=== PATIENT | female | born 1980 | race Caucasian/White ===

== ENCOUNTER 2020-08-02 07:28 | Outpatient (CLI) | payer OTHER, SELFPAY ==
--- NOTE | ~2020-08-02 | US_ITS ---
US right upper quadrant INDICATION: Elevated liver enzymes PROCEDURE: Realtime right upper abdominal ultrasound. COMPARISON: No prior studies for comparison. FINDINGS: The pancreas is normal without focal mass or pancreatic ductal dilation. Liver echotexture is increased without evidence for focal mass. There is normal directional flow in the portal vein. The gallbladder is normal without stones, gallbladder wall thickening or pericholecystic fluid. Comm on bile duct measures 3 mm. No sonographic Avalos's sign. IMPRESSION: 1: Increased liver echotexture, consistent with fatty infiltration. Reviewed, dictated and finalized at location A. CH MANAGER
== END 2020-08-02 07:29 | disposition home or self-care (01) ==
PROVIDERS: PCP Internal Medicine; Visit Provider Clinical Nurse Specialist
DX: R74.8 Abnormal levels of other serum enzymes (principal)
CPT/HCPCS: 76705

== ENCOUNTER 2020-11-03 08:32 | Outpatient (CLI) | payer OTHER, SELFPAY | END 2020-11-03 08:33 | disposition home or self-care (01) | LOC: ANHCOVIDVC 08:32 | PROVIDERS: PCP Internal Medicine | DX: Z23 Encounter for immunization (principal) | CPT/HCPCS: 0001A; 91300 ==

== ENCOUNTER 2020-11-24 08:32 | Outpatient (CLI) | payer OTHER, SELFPAY | END 2020-11-24 08:33 | disposition home or self-care (01) | LOC: ANHCOVIDVC 08:32 | PROVIDERS: PCP Internal Medicine | DX: Z23 Encounter for immunization (principal) | CPT/HCPCS: 0002A; 91300 ==

== ENCOUNTER → 2022-03-06 15:47 | Outpatient (CLI) | payer OTHER, SELFPAY ==
--- NOTE | ~2022-03-06 | MM_ITS ---
EXAMINATION: MM screening trace BI w nickie HISTORY: Screening TECHNIQUE: Craniocaudal and mediolateral oblique 3-D tomosynthesis images were obtained and synthetic 2-D images were generated. CAD analysis was submitted and interpreted. COMPARISON: No prior mammogram is available for comparison at this institution. BREAST PARENCHYMAL COMPOSITION: There are scattered areas of fibroglandular density. FINDINGS: There is a small mass in the medial aspect of the right breast on CC view, not well visuali zed on MLO view. There is no mammographic evidence for malignancy in the left breast. IMPRESSION: 1. Small right breast mass medially on CC view. 2. Additional mammographic views and possible breast ultrasound are recommended. BI-RADS Category 0: Incomplete: Needs additional imaging evaluation. Reviewed, dictated and finalized at location A. IMPRESSION: 1. Small right breast mass medially on CC view. 2. Additional mammographic views and possible breast ultrasound are recommended . BI-RADS Category 0: Incomplete: Needs additional imaging evaluation.
== END ==
PROVIDERS: PCP Internal Medicine; Visit Provider Nurse Practitioner
DX: Z12.31 Encounter for screening mammogram for malignant neoplasm of breast (principal); R92.8 Other abnormal and inconclusive findings on diagnostic imaging of breast
CPT/HCPCS: 77063; 77067

== ENCOUNTER 2022-03-24 07:57 | Outpatient (CLI) | payer OTHER, SELFPAY ==
--- NOTE | ~2022-03-24 | MMUS_ITS ---
EXAMINATION: MM diagnostic trace RT w nickie, US breast RT limited HISTORY: Follow-up right breast mass TECHNIQUE: Additional 3-D tomosynthesis images of the right breast were performed and synthetic 2-D i mages were generated. CAD analysis was submitted and interpreted. High resolution right breast ultras ound was performed. COMPARISON: 03/06/2022 BREAST PARENCHYMAL COMPOSITION: Breast composed of scattered areas of fibroglandular density FINDINGS: MAMMOGRAPHIC FINDINGS: The mass located medially in the left breast on prior screening CC view is not apparent on the additi onal spot compression or mediolateral views. No suspicious calcifications or architectural distortion . ULTRASOUND: Limited right breast ultrasound: At 2:00, 5 cm from the nipple, there is an intramammary lymph node m easuring 9 x 6 x 3 mm, likely corresponding to the mammographic abnormality. No sonographic evidence for malignancy. IMPRESSION: 1. No evidence for malignancy in the right breast. 2. Routine yearly screening mammogram and regular clinical breast examination are recommended. BI-RADS Category 2: Benign finding(s). Reviewed, dictated and finalized at location A. IMPRESSION: 1. No evidence for malignancy in the right breast. 2. Routine yearly screening mammogram and regular clinical breast examination a re recommended. BI-RADS Category 2: Benign finding(s).
== END 2022-03-24 07:58 ==
PROVIDERS: PCP Internal Medicine; Visit Provider Obstetrics & Gynecology Gynecology
DX: R92.8 Other abnormal and inconclusive findings on diagnostic imaging of breast (principal)
CPT/HCPCS: 76642; 77061; 77065; G0279

== ENCOUNTER 2022-07-17 11:22 | Outpatient (CLI) | payer OTHER, SELFPAY ==
[2022-07-17 11:44] LABS: Hematocrit 31.2 % (37.0-47.0); Hemoglobin 8.5 g/dL (12.0-15.0); Immature Granulocyte Absolute 0.01 K/mm3 (0.00-0.031); Immature Granulocyte Percent A 0.2 % (0-0.5); Lymphocytes Absolute Auto 1.69 K/mm3 (0.9-3.2); Lymphocytes Percent Auto 37.5 % (18.3-44.2); Mean Corpuscular HGB Conc 27.2 g/dl (32-36); Mean Corpuscular Hemoglobin 18.4 pg (26-34); Mean Corpuscular Volume 67.7 fl (80-100); Mean Platelet Volume 9.2 fl (7.4-10.4); Monocytes Absolute Auto 0.4 K/mm3 (0.1-0.6); Monocytes Percent Auto 9.3 % (2.6-8.5); Neutrophils Absolute Auto 2.4 K/mm3 (1.3-6.7); Platelet Count Result 242 k/mm3 (150-375); Red Blood Count 4.61 M/mm3 (4.2-5.4); Red Cell Distribution Width 17.2 % (11.5-14.5); White Blood Count 4.5 K/mm3 (4.5-10.0)
[2022-07-17 11:53] LABS: Hypochromasia 1+ (NORMAL); Ovalocytes 1+ (NORMAL); Platelet Estimate Adequate (Adequate); Poikilocytosis 1+ (NORMAL); Schistocytes None Seen (NORMAL)
[2022-07-17 18:04] LABS: Iron 25 ug/dL (37-170)
[2022-07-17 18:14] LABS: Percent Iron Saturation 5 % (20-50)
[2022-07-17 18:41] LABS: Ferritin 3.95 ng/mL (6.24-137)
[2022-07-17 18:51] LABS: Alanine Aminotransferase 36 U/L (6-35); Alkaline Phosphatase 144 U/L (38-126); Anion Gap 9 mmol/L (8-16); Aspartate Amino Transferase 32 U/L (14-36); Bilirubin,Total 0.3 mg/dL (0.2-1.3); Blood Urea Nitrogen 5 mg/dL (7-17); Calcium 8.1 mg/dL (8.4-10.2); Carbon Dioxide 24 mmol/L (22-30); Chloride 104 mmol/L (98-107); Estimated Glomerular Filt Rate > 60; Glucose 236 mg/dL (65-110); Potassium 4.2 mmol/L (3.4-5.0); Sodium 137 mmol/L (137-145)
[2022-07-17 19:59] LABS: Folic Acid 10.9 ng/mL (2.76->20)
== END 2022-07-17 11:23 | disposition home or self-care (01) ==
LOC: ANHLAB 11:24
PROVIDERS: PCP Internal Medicine; Visit Provider Internal Medicine Hematology & Oncology
DX: D64.9 Anemia, unspecified (principal)
CPT/HCPCS: 36415; 80053; 82607; 82728; 82746; 83540; 83550; 85025

== ENCOUNTER → 2023-01-24 13:17 | Outpatient (CLI) | payer OTHER, SELFPAY ==
--- NOTE | ~2023-01-24 | US_ITS ---
Pelvic ultrasound. Clinical History: Pain Technique: Realtime transabdominal and transvaginal scanning of the pelvis was performed. Color flow Doppler and Doppler spectral analysis were performed. Findings: The uterus is anteverted. The endometrial stripe has a thickness of 6 mm. No focal mass is identified. Neither ovary seen. No adnexal mass seen. There is no evidence of free fluid in the cul de sac. Impression: No significant abnormality seen. Neither ovary visualized. Reviewed, dictated and finalized at location . Impression: No significant abnormality seen. Neither ovary visualized.
== END ==
PROVIDERS: PCP Nurse Practitioner; Visit Provider Nurse Practitioner
DX: N92.0 Excessive and frequent menstruation with regular cycle (principal)
CPT/HCPCS: 76830

== ENCOUNTER → 2023-04-02 12:42 | Outpatient (CLI) | payer OTHER, SELFPAY ==
--- NOTE | ~2023-04-02 | MM_ITS ---
EXAMINATION: MM screening trace BI w nickie HISTORY: Screening TECHNIQUE: Craniocaudal and mediolateral oblique 3-D tomosynthesis images were obtained and synthetic 2-D images were generated. CAD analysis was submitted and interpreted. COMPARISON: No prior mammogram is available for comparison at this institution. BREAST PARENCHYMAL COMPOSITION: Breast composed of scattered areas of fibroglandular density FINDINGS: There is no evidence of suspicious mass, calcification, or architectural distortion to sugg est malignancy in either breast. There has been no suspicious interval change. IMPRESSION: 1. No mammographic evidence of malignancy. 2. Recommend routine screening mammography in one year. BI-RADS Category 1: Negative Reviewed, dictated and finalized at location A.
== END ==
PROVIDERS: PCP Nurse Practitioner; Visit Provider Nurse Practitioner
DX: Z12.31 Encounter for screening mammogram for malignant neoplasm of breast (principal)
CPT/HCPCS: 77063; 77067

== ENCOUNTER 2024-01-22 10:54 | Outpatient (CLI) | payer OTHER, SELFPAY ==
[2024-01-22 11:12] LABS: Hemoglobin 10.8 g/dL (12.0-15.0); Immature Granulocyte Absolute 0.02 K/mm3 (0.00-0.031); Immature Granulocyte Percent A 0.3 % (0-0.5); Lymphocytes Percent Auto 33.1 % (18.3-44.2); Mean Corpuscular HGB Conc 29.2 g/dl (32-36); Mean Corpuscular Hemoglobin 21.6 pg (26-34); Mean Corpuscular Volume 73.9 fl (80-100); Mean Platelet Volume 9.8 fl (7.4-10.4); Monocytes Absolute Auto 0.4 K/mm3 (0.1-0.6); Monocytes Percent Auto 6.9 % (2.6-8.5); Neutrophils Absolute Auto 3.8 K/mm3 (1.3-6.7); Neutrophils Percent Auto 59.7 % (45.5-73.1); Platelet Count Result 275 k/mm3 (150-375); Red Blood Count 5.01 M/mm3 (4.2-5.4); Red Cell Distribution Width 18.6 % (11.5-14.5); White Blood Count 6.4 K/mm3 (4.5-10.0)
[2024-01-22 11:18] LABS: Anisocytosis 1+; Crenated RBC 1+; Hypochromasia 1+; Microcytosis 1+ (NORMAL); Platelet Estimate Adequate (Adequate); Poikilocytosis 1+; Schistocytes None Seen
[2024-01-22 12:49] LABS: Iron 39 ug/dL (37-170)
[2024-01-22 13:01] LABS: Percent Iron Saturation 8 % (20-50)
[2024-01-22 13:40] LABS: Ferritin 6.64 ng/mL (6.24-137)
[2024-01-22 13:47] LABS: Folic Acid 8.7 ng/mL (2.76->20)
== END 2024-01-22 10:55 | disposition home or self-care (01) ==
LOC: ANHLAB 10:56
PROVIDERS: PCP Internal Medicine; Visit Provider Internal Medicine Hematology & Oncology
DX: D64.9 Anemia, unspecified (principal)
CPT/HCPCS: 36415; 82607; 82728; 82746; 83540; 83550; 85025

== ENCOUNTER 2024-07-08 14:09 | Outpatient (CLI) | payer OTHER, SELFPAY ==
--- NOTE | ~2024-07-08 | MM_ITS ---
EXAMINATION: MM screening trace BI w nickie HISTORY: Screening mammogram TECHNIQUE: Craniocaudal and mediolateral oblique 3-D tomosynthesis images were obtained and synthetic 2-D images were generated. CAD analysis was submitted and interpreted. COMPARISON: 04/02/2023, 03/06/2022 BREAST PARENCHYMAL COMPOSITION:Not Dense. There are scattered areas of fibroglandular density. FINDINGS: No suspicious mass, calcification, or architectural distortion are identified in either shakira ast to suggest malignancy. There has been no suspicious interval change. IMPRESSION: No mammographic evidence of malignancy. Recommend routine screening mammography in one year. BI-RADS Category 1: Negative Reviewed, dictated and finalized at location . EL PULVERIZER
== END 2024-07-08 14:10 | disposition home or self-care (01) ==
PROVIDERS: PCP Internal Medicine; Visit Provider Obstetrics & Gynecology Gynecology
DX: Z12.31 Encounter for screening mammogram for malignant neoplasm of breast (principal)
CPT/HCPCS: 77063; 77067

== ENCOUNTER 2025-05-25 09:30 | Day surgery (SDC) | payer OTHER, SELFPAY ==
[2025-04-27 09:12] VITALS: BMI 33.5
[2025-05-13 10:37] VITALS: BMI 31.6
[2025-05-25 10:10] VITALS: BMI 31.0
[2025-05-25] MEDS: LACTATED RINGERS 1,000 ML 150 ML IV CONT (10:25)
[2025-05-25 10:26] VITALS: BP 121/80; PULSE 81; RESP 18; TEMP 37.5; O2SAT 100
--- NOTE | 2025-05-25 10:28 | P.PNAN_ITS ---
Anes - Initial Pre Proc Eval Procedure: Operation Date: 05/25/25 11:00 Proposed Procedures p Diagnostic Colonoscopy - Neal Navarro MD Date/Time: 05/25/25 10:28 Surgeon: Neal Navarro MD Pre Op Diagnosis: Other fecal abnormalities Patient Data Age: 44 Gender: F Height: 1.65 m Weight: 84.7 kg Allergies Allergy/AdvReac Type Severity Reaction Status Date / Time cefaclor Allergy Unknown Hives Verified 05/25/25 10:07 cephalexin Allergy Unknown Hives Verified 05/25/25 10:07 Penicillins Allergy Unknown Hives Verified 05/25/25 10:07 Home Medications ?Medication ?Instructions ?Recorded ?Confirmed ?Type blood sugar diagnostic (OneTouch #100 ea 06/30/2201/11 Rx Verio test strips) lancets 30 gauge (OneTouch Delica #100 ea 06/30/2201/11 Rx Lancets) ondansetron HCl 4 mg tablet 4 mg PO DAILY PRN nausea a nd 01/07/24 05/25/25 Rx vomiting #20 tabs 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,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,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 #1 ea 03/24/24 04/24/25 Rx (FreeStyle Vega 3 [place]) ferrous sulfate 325 mg (65 mg 325 mg PO BID #180 tabs 11/04/24 05/25/25 Rx iron) tablet losartan 100 mg tablet 100 mg PO DAILY #90 tabs 05/25/25 Rx atorvastatin 10 mg tablet 10 mg PO DAILY #90 tabs 01/1805/25/25 Rx cholecalciferol (vitamin D3) 1,250 1,250 mcg PO WEEKLY #8 tabs 03/09/25 05/25/25 Rx mcg (50,000 unit) tablet levothyroxine 75 mcg tablet 75 mcg PO DAILY #90 tabs 0 03/16/25 05/25/25 Rx (Synthroid) 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 sensor (FreeStyle #2 ea 04/23/25 5 Rx Vega 3 Plus Sensor device) ascorbic acid (vitamin C) 500 mg 500 mg PO DAILY 05/1305/25/25 History tablet (Vitamin C) metformin 500 mg tablet 500 mg PO DAILY 05/13/2502/11 History venlafaxine 150 mg See Rx Instructions .Route 0 05/18/25 05/25/25 Rx capsule,extended release 24 hr .COMPLEX #90 caps tirzepatide 12.5 mg/0.5 mL 12.5 mg (0.5 mL) subcut ODILON LACKEY #2 05/19/25 05/25/25 Rx subcutaneous pen injector mL (Mounjaro) Laboratory Tests 05/25/25 10:23 POC Capillary Glucose 138 H mg/dl (65-105) Patient hx anesthesia problems: none Family hx anesthesia problems: none Results Review: All pre-operative results and documents have been reviewed as part of the pre- operative evaluation. [facility] Past Medical History Medical History (Updated 04/24/25 @ 09:03 by YAKOV MartinC) Screening for endocrine disorder Elevated liver enzymes Otitis media Belching Encounter for wellness examination Chest congestion Pelvic pressure in female Anxiety delivery delivered QT prolongation Iron deficiency anemia Morbid obesity Hypertension Diabetes mellitus Hypothyroidism, unspecified (~09/27/21) Family History Family History Father Hypertension Mother , MVA Mitral valve prolapse Social History Social History Smoking status: Never smoker Alcohol intake: never Lack of Transportation: No Lack of Food: Never True Current Housing: I Have Housing Concerned About Future Housing: No Difficulty Paying Gas/Electric Bills: No Difficulty Paying for Meds: No Currently Unemployed: No Education: Master's Degree or Higher Difficulty w/ Childcare or Family Care: No Spiritual care concerns: No Anes - Eval Final PreProcedure Day of Procedure 05/25/25 10:28 Heart: regular rate and rhythm Lungs: clear to auscultation Airway: Mallampati scale class II Neurological: alert and oriented Last oral intake: >/= 8 hours ASA classification: II Anesthetic plan: proceed Anesthesia type and monitoring: monitored anesthesia care Results Review: All pre-operative results and documents have been reviewed as part of the pre- operative evaluation. Informed Consent: The patient's anesthetic plan and its attendant risks and benefits were discussed with the patient/family/POA. Questions were solicited and answers provided to the satisfaction of the patient/family/POA.
--- OUTSIDE RECORDS SUMMARY | 2025-05-25 10:40 | XMS_ITS | Clinical Summary ---
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 Active levothyroxine 75 mcg tablet Take 75 mcg by mouth daily in the morning. Active venlafaxine (EFFEXOR) 100 mg tablet Take 150 mg by mouth daily. Active atorvastatin (LIPITOR) 10 mg tablet Take 10 mg by mouth daily. Active vitamin D3-vitamin K2 1,250-200 mcg Capsule Take by mouth. Activ e Trulicity 0.75 mg/0.5 mL injection Inject 0.75 mg by subcutaneous injection every 7 days. 4 Active ferrous sulfate 325 mg (65 mg iron) tablet Take 325 mg by mouth daily. 4 Active losartan (COZAAR) 100 mg tablet Take 1 Tablet by mouth daily. 4 Active Active Problems Problem Noted Date Diagnosed Date Vitamin B12 deficiency anemia 10/27/2022 RLTCS 09/15, F, HANH drain d/c 09/16 - cellulitis (clinda 450 q8) 09/15/2013 Immunizations Immunization Administration Dates Next Due Influenza Seasonal Unspecified Formulation IM Family History Medical History Relation Name Comments Diabetes Brother 1 No Known Problems Daughter No Known Problems Father Heart Disease Maternal Grandfather Hypertension Maternal Grandfather Cancer Maternal Grandmother No Known Problems Mother Cancer Paternal Grandmother No Known Problems Son Relation Name Status Comments Brother 1 Alive Brother 2 Alive Daughter Alive Father Alive Maternal Grandfather Maternal Grandmother Mother Alive Paternal Grandmother Son Alive Social History Tobacco Use Types Packs/Day Years Used Date Smoking Tobacco: Never Smokeless Tobacco: Never Tobacco Cessation:Counseling Given: Not Answered Alcohol Use Standard Drinks/Week Comments Never 0 (1 standard drink = 0.6 oz pur e alcohol) Comments Unknown Sex and Gender Information Value Date Recorded Sex Assigned at Not on file Legal 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 Gender Identity Not on file Sexual Orientation Not on file Occupation Industry Job Start Date Job End Date Not on file Not on file Not on file Not on file Last Filed Vital Signs Vital Sign Reading Time Taken Comments Blood Pressure 130/95 01/29/2024 11:20 AM CDT Pulse 87 01/29/2024 11:20 AM CDT Temperature 36.7 C (98 F) 01/29/2024 11:16 AM CDT Respiratory Rate 18 01/29/2024 11:16 AM CDT Oxygen Saturation 98% 01/29/2024 11:16 AM CDT Inhaled Oxygen Concentration - - Weight 111.1 kg (245 lb) 01/29/2024 11:16 AM CDT Height 162.6 cm (5' 4) 07/17/2022 10:47 AM CONSTRUCTION LINEMAN Body Mass Index 42.05 07/17/2022 10:47 AM CONSTRUCTION LINEMAN Plan of Treatment Health Maintenance Due Date Last Done Comments DIABETES ANNUAL FOOT EXAM 2000 DIABETES ANNUAL RETINAL EXAM 2000 DIABETES MICROALBUMIN ANNUAL SCREEN 2000 LDL CHOLESTEROL ANNUAL 2000 DTAP/TDAP/TD VACCINES (1 - Tdap) 2001 HEPATITIS B VACCINES (1 of 3 - 19+ 3-dose series) 09/20 HPV/Cotest (21-29) 2003 HPV VACCINES (1 - 3-dose SCDM series) 2009 CERVICAL CANCER SCREENING 2012 HPV/Cotest (30-65) 2012 PAP SMEAR 2012 DIABETES HBA1C Q 6 MONTHS 05/10/2019 11/07/2018 BREAST CANCER SCREENING 2022 INFLUENZA VACCINE (#1) 2025 08/11/2013 Medical Devices Implanted Type Area Casting Cleaner Device Identifier Shelf Expiration Date Model / Serial / Lot Barrier Seprafilm 5x6in 4301-02 - [id number] Implanted:Qty : 1 on 09/15/2013 by Toshia Roper DO at [facility] Adhesion Barrier Bilateral: Abdomen GENZYME- BIOSURG 04/15/2015 9953-0007 -02 / [id number] Barrier Seprafilm 5x6in 4301-02 - [id number] Implanted:Qty : 1 on 09/15/2013 by Toshia Roper DO at [facility] Adhesion Barrier N/A: Abdomen GENZYME- BIOSURG 04/15/2015 [id number] -02 / [id number] Insurance OPTIONS PPO [id number] OPTIONS PPO [id number] Advance Directives For more information, please contact: [phone] * Full Code (Latest Code Status on File) Date Activated Date Inactivated Comments 09/15/2013 3:12 PM 09/20/2013 1:15 PM * Full Code Date Activated Date Inactivated Comments 09/15/2013 7:57 AM 09/15/2013 3:12 PM Care Teams Numerical Control Machine Tool Operator Relationship Specialty Start Date End Date Bethel Zepeda DO [address] [address] PCP - General Internal Medicine 07/17/22
--- OUTSIDE RECORDS SUMMARY | 2025-05-25 10:40 | XMS_ITS | Clinical Summary ---
Author Organization [facility] Address [address] [place] [address] Care Team Providers Care Cuffer Name Role Phone Bethel Zepeda DO Primary Care Provider [phone] Bethel Zepeda DO Unavailable [phone] Allergies Active Allergy Reactions Criticality Noted Date Comments Cefaclor Hives Medium 10/10/2018 Cephalexin Hives Medium 10/10/2018 Penicillin G Hives Medium 03/26/2009 Penicillins Hives Medium 10/10/2018 Medications atorvastatin (LIPITOR) 10 mg tablet 09/21/2018 Active ONETOUCH VERIO strip 09/29/2018 Active ONETOUCH DELICA LANCETS 30 gauge misc 08/15/2018 Active levothyroxine (SYNTHROID, LEVOTHROID) 75 mcg tablet 09/21/2018 Active losartan (COZAAR) 25 mg tablet 09/01/2018 Active metFORMIN (GLUCOPHAGE) 500 mg tablet 09/29/2018 Activ e phentermine 37.5 mg capsule 0 09/23/2018 Act raisa venlafaxine XR (EFFEXOR-XR) 150 mg 24 hr capsule 09/21/2018 Active ferrous sulfate 325 mg (65 mg of elemental iron) tablet Take 1 tablet (325 mg total) by mouth daily 09/19/2013 Active famotidine (PEPCID) 20 mg tablet Take 1 tablet (20 mg total) by mouth 2 times daily Active ibuprofen (ADVIL,MOTRIN) 600 mg tablet Take 1 tablet (600 mg total) by mouth 4 (four) times a day 09/19/2013 Active azithromycin (ZITHROMAX) 250 mg tabletIndicatio ns:Strep throat Take 2 tablets the first day, then 1 tablet daily for 4 days. 6 tablet 05/18/2024 Active Active Problems Problem Noted Date Diagnosed Date FARIDEH (obstructive sleep apnea) 03/04/2019 Essential hypertension 03/04/2019 Type 2 diabetes mellitus, wi thout long-term current use of insulin 03/04/2019 Other hyperlipidemia 03/04/2019 Iron deficiency anemia 03/04/2019 Morbid obesity 10/10/2018 Surgical History Surgery Date Site/Laterality Comments SECTION Medical History Medical History Date Comments Obesity Hypertension Hyperlipidemia Type 2 diabetes mellitus Anxiety Thyroid disease Family History Medical History Relation Name Comments Diabetes Father Hypertension Father Obesity Father Diabetes Other grandparents Heart disease Other grandparents Hypertension Other grandparents Obesity Other grandparents Stroke Other grandparents Diabetes Sister Relation Name Status Comments Father Other grandparents Alive Sister Social History Tobacco Use Types Packs/Day Years Used Date Smoking Tobacco: Never Alcohol Use Standard Drinks/Week Comments No 0 (1 standard drink = 0.6 oz pur e alcohol) Personal Safety Answer Date Recorded Getting School Help Needed Not on file 11/02 Comments Unknown Sex and Gender Information Value Date Recorded Sex Assigned at Not on file Legal 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 Gender Identity Not on file Sexual Orientation Not on file Obstetrics History Last Filed Vital Signs Vital Sign Reading Time Taken Comments Blood Pressure 114/81 05/18/2024 2:54 PM CDT Pulse 102 05/18/2024 2:54 PM CDT Temperature 36.9 C (98.4 F) 05/18/2024 2:54 PM CDT Respiratory Rate 18 05/18/2024 2:54 PM CDT Oxygen Saturation 99% 05/18/2024 2:54 PM CDT Inhaled Oxygen Concentration - - Weight 103.2 kg (227 lb 9.6 oz) 05/18/2024 2:54 PM CDT Height 162.6 cm (5' 4) 05/18/2024 2:54 PM CDT Body Mass Index 39.07 05/18/2024 2:54 PM CDT Plan of Treatment Health Maintenance Due Date Last Done Comments Albumin Creatinine Ratio, Urine 1982 Breast Cancer Screening-Mammogram 1982 Cervical Cancer Screening 1982 Depression Screening 1982 Hepatitis C Screening 1982 Dilated Eye Exam 1982 Foot Exam 1982 DTaP/Tdap/Td Vaccine (1 - Tdap) 1993 Varicella Vaccines (1 of 2 - 13+ 2-dose series) 1995 Hepatitis B Screening 2000 Regular Well Visit/Exam 18-64 2000 Pneumococcal vaccine <65 (1 of 2 - PCV) 2001 HPV Vaccines (1 - 3-dose SCDM series) 2009 Hemoglobin A1C 05/10/2019 11/07/2018 Lipid Panel 11/08/2019 11/07/2018 eGFR 11/08/2019 11/07/2018 Covid-19 Vaccine ( season) 04/20/202502/2021, 11/03/2020 Influenza Vaccine (#1) 2025 07/09/2014, 2012 Procedures Procedure Name Priority Date/Time Associated Diagnosis Comments COMPREHENSIVE METABOLIC PANEL Routine 11/07/2018 10:07 AM CDT Morbid obesity (HCC) Type 2 diabetes mellitus with complication, without long-term current use of insulin (HCC) Essential hypertension Pure hypercholesterolemia HEMOGLOBIN A1C Routine 11/07/2018 10:07 AM CDT Morbid obesity (HCC) Type 2 diabetes mellitus with complication, without long-term current use of insulin (HCC) Essential hypertension Pure hypercholesterolemia LIPID PANEL Routine 11/07/2018 10:07 AM CDT Morbid obesity (HCC) Type 2 diabetes mellitus with complication, without long-term current use of insulin (HCC) Essential hypertension Pure hypercholesterolemia from Last 3 Months or Most Recently Relevant to Health Maintenance Results * (ABNORMAL) Hemoglobin A1c (11/07/2018 10:07 AM CDT) Hgb A1C 6.6(H) 4.8 - 5.6 % [facility] - 01 Comment: Prediabetes: 5.7 - 6.4 Diabetes: >6.4 Glycemic control for adults with diabetes: <7.0 Blood specimen (specimen) 11/07/2018 10:07 AM CDT 11/07/2018 Narrative [facility] - 11/08/2018 3:11 PM CDT Performed at: [address] [id number] Refrigeration System Installer: Shailesh Lemus PhD, Phone: [phone] Juan Estrada NP LAB BLOOD ORDERABLES Final Result Performing Organization Address [facility] de Phone Number [facility] - * (ABNORMAL) Lipid panel (11/07/2018 10:07 AM CDT) Cholesterol 112 100 - 199 mg/dL [facility] - 01 Triglycerides 130 0 - 149 mg/dL [facility] - 01 HDL Cholesterol 36(L) >39 mg/dL [facility] - 01 VLDL 26 5 - 40 mg/dL [facility] - 01 LDL, calculated 50 0 - 99 mg/dL [facility] - 01 Blood specimen (specimen) 11/07/2018 10:07 AM CDT 11/07/2018 Narrative [facility] - 11/08/2018 3:11 PM CDT Performed at: [address] [id number] Refrigeration System Installer: Shailesh Lemus PhD, Phone: [phone] Juan Estrada NP LAB BLOOD ORDERABLES Final Result Performing Organization Address [facility] de Phone Number [facility] - * (ABNORMAL) Comprehensive metabolic panel (11/07/2018 10:07 AM CDT) Glucose 133(H) 65 - 99 mg/dL [facility] - 01 BUN 7 6 - 20 mg/dL [facility] - 01 Creatinine, Serum 0.66 0.57 - 1.00 mg/dL [facility] - 01 eGFR If NonAfricn Am 114 >59 mL/min/1.7 3 [facility] - 01 eGFR If Africn Am 131 >59 mL/min/1.7 3 [facility] - 01 BUN/creat ratio 11 9 - 23 [facility] - 01 Sodium 140 134 - 144 mmol/L [facility] - 01 Potassium, sr 3.9 3.5 - 5.2 mmol/L [facility] - 01 Chloride 101 96 - 106 mmol/L [facility] - 01 CO2 23 20 - 29 mmol/L [facility] - 01 Calcium 9.2 8.7 - 10.2 mg/dL [facility] - 01 Protein, sr 6.7 6.0 - 8.5 g/dL [facility] - 01 Albumin 4.5 3.5 - 5.5 g/dL [facility] - 01 Globulin, Total 2.2 1.5 - 4.5 g/dL [facility] - 01 A/G Ratio 2.0 1.2 - 2.2 [facility] - 01 Bilirubin, Total 0.3 0.0 - 1.2 mg/dL [facility] - 01 Alk phos 107 39 - 117 IU/L [facility] - 01 AST 39 0 - 40 IU/L [facility] - 01 ALT 51(H) 0 - 32 IU/L [facility] - 01 Blood specimen (specimen) 11/07/2018 10:07 AM CDT 11/07/2018 Narrative [facility] - 11/08/2018 3:11 PM CDT Performed at: [facility] [id number] Refrigeration System Installer: Shailesh Lemus PhD, Phone: [phone] Juan Estrada TECHNOLOGY DIRECTOR LAB BLOOD ORDERABLES Final Result Performing Organization Address City/State/[facility] Co de Phone Number [facility] - 01 from Last 3 Months or Most Recently Relevant to Health Maintenance Insurance [facility] CHOICE PLUS [facility] CHOICE PLUS Care Teams Cuffer Relationship Specialty Start Date End Date Bethel Zepeda DO PCP - General 10/29/18 Bethel Zepeda DO Internal Medicine 10/29/18
--- OUTSIDE RECORDS SUMMARY | 2025-05-25 10:40 | XMS_ITS | Encounter Summary ---
Author Organization [facility] Address [address] [place] [address] Care Team Providers Care Concrete Boom Pump Operator Name Role Phone Bethel Zepeda DO Primary Care Provider Encounter Details Date Type Department Care Team (Late st Contact Info) Description 02/03/2009 Outpatient Historical HIS OB PREADMIT Toshia Roper DO [address] [facility] [address] [place] [address] Bethel Wharton DO NO ADDRESS ON FILE Helga Marcus MD [address] [place] [address] Normal Delivery Social History Tobacco Use Types Packs/Day Years Used Date Smoking Tobacco: Never Assessed Comments Unknown Sex and Gender Information Value Date Recorded Sex Assigned at Not on file 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 Gender Identity Not on file Sexual Orientation Not on file documented as of this encounter Plan of Treatment Not on file documented as of this encounter Procedures Procedure Name Priority Date/Time Associated Diagnosis Comments URINALYSIS W/REFLEX MICROSCOPIC Timed Study 03/14/2009 2:40 PM CDT URINE CULTURE Timed Study 03/14/2009 2:40 PM CDT CBC WITH DIFFERENTIAL Routine 03/11/2009 5:35 AM CDT HEMOGLOBIN AND HEMATOCRIT Stat 03/10/2009 6:42 PM CDT PATHOLOGY Routine 03/10/2009 5:00 PM CDT URINALYSIS W/REFLEX MICROSCOPIC Stat 03/10/2009 6:45 AM CDT TYPE AND SCREEN Routine 03/10/2009 4:27 AM CDT DIC PROFILE Stat 03/10/2009 4:24 AM CDT CBC WITH DIFFERENTIAL Stat 03/10/2009 3:41 AM CDT URIC ACID Stat 03/10/2009 3:41 AM CDT AST Stat 03/10/2009 3:41 AM CDT LACTATE DEHYDROGENASE Stat 03/10/2009 3:41 AM CDT documented in this encounter Results * URINE CULTURE (03/14/2009 2:40 PM CDT) PRELIMINARY REPORT Pending [facility] FINAL REPORT No growth 24 hours [facility] 03/14/2009 2:40 PM CDT 03/14/2009 3:33 PM CDT us Olga Klein MICROBIOLOGY - GENERAL ORDERABL ES Final Result [facility] CLIA# [id number] [address] [address] * URINALYSIS (03/14/2009 2:40 PM CDT) COLOR UA Pale Yellow [facility] NITRITE UA Negative Negative [facility] UROBILINOGEN UA <1 <=1 mg/dL [facility] PH UA 5.0 5.0 - 8.0 [facility] KETONES UA Negative Negative [facility] CLARITY UA Clear Clear [facility] PROTEIN UA Negative Negative [facility] BILIRUBIN UA Negative Negative [facility] LEUKOCYTE ESTERASE UA Negative Negative [facility] SPECIFIC GRAVITY UA 1.007 1.001 - 1.035 [facility] BLOOD UA Negative Negative [facility] GLUCOSE UA Negative Negative [facility] 03/14/2009 2:40 PM CDT 03/14/2009 3:07 PM CDT Olga Klein URINE ORDERABLES Final Result [facility] CLIA# [id number] [address] [facility] [place], [place] [address] * (ABNORMAL) CBC WITH DIFFERENTIAL (03/11/2009 5:35 AM CDT) RBC 3.39(L) 3.90 - 4.90 M/uL [facility] MCHC 32.0 31.5 - 35.5 % [facility] MCV 82.9 82.0 - 99.0 fL [facility] PLATELETS 138(L) 140 - 350 K/uL [facility] HEMOGLOBIN 9.0(L) 11.8 - 14.8 g/dL [facility] RDW 15.0(H) 11.5 - 14.5 % [facility] WBC 10.3(H) 4.0 - 9.8 K/uL [facility] MCH 26.5(L) 27.2 - 32.6 pg [facility] MPV 11.7 9.3 - 12.4 fL [facility] HEMATOCRIT 28.1(L) 35.5 - 44.0 % [facility] RDW-STDEV 45.5 37.1 - 48.7 fL [facility] BASOPHILS 0 0 - 2 % [facility] BASOPHILS ABSOLUTE 0.01 0.00 - 0.20 K/uL [facility] MONOCYTES 8 3 - 13 % [facility] MONOCYTE ABSOLUTE 0.85 0.10 - 1.30 K/uL [facility] NEUTROPHILS 76(H) 45 - 70 % [facility] NEUTROPHIL ABSOLUTE 7.84(H) 1.90 - 7.00 K/uL [facility] EOSINOPHILS 0 0 - 7 % [facility] EOSINOPHIL ABSOLUTE 0.01 0.00 - 0.70 K/uL [facility] LYMPHOCYTES 16 16 - 45 % [facility] LYMPHOCYTE ABSOLUTE 1.60 0.70 - 4.50 K/uL [facility] 03/11/2009 5:35 AM CDT 03/11/2009 6:22 AM CDT Toshia Roper DO HEMATOLOGY ORDERABLES Michael jean claude Performing Organization Address City/[facility] de Phone Number INTERFACE SYSTEM Refer to clinic/hospital department [facility] CLIA# [id number] [address] [facility] [place] [address] * (ABNORMAL) HEMOGLOBIN AND HEMATOCRIT (03/10/2009 6:42 PM CDT) HEMOGLOBIN 9.4(L) 11.8 - 14.8 g/dL [facility] HEMATOCRIT 29.2(L) 35.5 - 44.0 % [facility] 03/10/2009 6:42 PM CDT 03/10/2009 7:06 PM CDT Toshia Roper DO HEMATOLOGY ORDERABLES Fin al Result INTERFACE SYSTEM Refer to clinic/hospital department [facility] CLIA# [id number] [address] [place] [address] * PATHOLOGY (03/10/2009 5:00 PM CDT) FINAL REPORT [facility] [address] [place], [place] [address] Patient: MINAL ESCOBAR : 1980 Procedure Date: 03/10/2009 Accession Date: 03/11/2009 Case No: [id number] Ordering Dr: HELGA MARCUS Case type SW is performed by [place], [place]; all other case types are performed by [facility] [place], [place], [place] SURGICAL PATHOLOGY & NON-GYNECOLOGIC CYTOPATHOLOGY REPORT DIAGNOSIS PLACENTA, PRIMARY SECTION: - 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 - MILD ACUTE SUBCHORIONITIS. - ABUNDANT BROWN PIGMENT CONSISTENT WITH MECONIUM WITHIN AMNIONIC MACROPHAGES. - SMALL INTERVILLOUS THROMBOHEMATOMA. Specimen Description: Placenta. Operative Procedure: Primary section. Patient Information/Histor y/Diagnosis: Meconium fluid with spontaneous rupture of membranes and amnion infusion. Intrauterine 39-2/7 weeks. SPMT labor and spontaneous rupture of membranes. Gross: Received in one container labeled Minal Escobar., placenta and designated no micro is a 22.6 x 17.0 x 1.7-cm reeves placenta with a trimmed weight of 513 g. The surface is tinged blue-green. The 56.9-cm long x 1.2-cm in diameter attached segment of umbilical cord is eccentrically inserted 6.2 cm from the closest margin, is normally torsed and has a vascular pattern of three vessels. The membranes are green-bello, thickened, focally edematous and semitranslucent. They are marginally inserted and ruptured at the margin. The maternal surface is disrupted and questionably complete with no retroplacental hemorrhage. Sectioning of the parenchyma demonstrates a dark burgundy-red, spongy cut surface, remarkable for a 1.0-cm area of red-bello induration. This lesion involves less than 1% of the parenchyma. Scouring Machine Operator sections are submitted as follows: A1- umbilical cord and membranes; A2-area of red-bello induration; A3-disrupted parenchyma; A4 and A5-placental parenchyma. [facility] 03.12.2009 01:08 pm Microscopic: The slides are labeled [id number], Minal Escobar. Sections of the membranes show mild acute subchorionitis and abundant brown pigment consistent with meconium within amnionic macrophages. The umbilical cord is unremarkable, and there is no evidence of a inflammatory response. The grossly noted red-bello, indurated area is a small intervillous thrombohematoma. The remainder of the placental parenchyma is remarkable for villous chorioangiosis, characterized by numerous groups of large and markedly hypervascular villi scattered throughout the placenta. HCUNG/YEOL 03.15.2009 09:45 pm Staging Form: No. ELECTRONIC SIGNATURE FOR PHOEBE ENRIQUEZ MD- 03/16/09 08:32 am [facility] 03/10/2009 5:00 PM CDT us Helga Marcus MD PATHOLOGY/CYTOLOGY ORDERABL ES Final Result [facility] CLIA# [id number] [address] [place] [address] * (ABNORMAL) URINALYSIS (03/10/2009 6:45 AM CDT) SPECIFIC GRAVITY UA 1.016 1.001 - 1.035 [facility] BLOOD UA Negative Negative [facility] GLUCOSE UA 1+(A) Negative [facility] TRANSITIONAL EPI 0-2 /HPF [facility] COLOR UA Yellow [facility] NITRITE UA Negative Negative [facility] UROBILINOGEN UA <1 <=1 mg/dL [facility] BACTERIA UA 1+(A) None Seen /HPF [facility] PH UA 6.0 5.0 - 8.0 [facility] KETONES UA Trace(A) Negative [facility] WBC UA 2 0 - 5 /HPF [facility] CLARITY UA Clear Clear [facility] PROTEIN UA Trace(A) Negative [facility] EPITHELIAL CELLS, URINE 0-2 /HPF [facility] BILIRUBIN UA Negative Negative [facility] LEUKOCYTE ESTERASE UA Negative Negative [facility] RBC UA 1 0 - 4 /HPF [facility] 03/10/2009 6:45 AM CDT 03/10/2009 6:54 AM CDT Narrative INTERFACE SYSTEM - 03/10/2009 7:06 AM CDT CATH UA Toshia Martinwright DO URINE ORDERABLES Final Re sult Performing Organization Address [facility] de Phone Number INTERFACE SYSTEM Refer to clinic/hospital department [facility] CLIA# [id number] [address] [place] [address] * TYPE AND SCREEN (03/10/2009 4:27 AM CDT) HISTORY CHECK No Historical ABO/Rh [facility] SPECIMEN LIFE 3 days from drawdate [facility] ABO/RH TYPE O Positive [facility] ANTIBODY SCREEN Negative [facility] 03/10/2009 4:27 AM CDT [employer] Toshia Valdez Ramseur DO BLOOD BANK ORDERABLES Michael jean claude Performing Organization Address [facility] de Phone Number INTERFACE SYSTEM Refer to clinic/hospital department [facility] CLIA# [id number] [address] [place] [address] * (ABNORMAL) DIC PROFILE (03/10/2009 4:24 AM CDT) Pathologist [facility] INR 1.0 0.9 - 1.1 [facility] Comment: INR Therapeutic Range: Adult: 2.0 - 3.0 for pulmonary embolism or prophylaxis against venous thrombosis or systemic embolization. 2.0 - 3.0 for patients with tissue heart valves. 2.5 - 3.5 for patients with mechanical heart valves or post OR. Pediatric (12 years and under): 1.5 - 3.0 Although the target range in children is not well established, INR values of 1.5 - 3.0 are recommended for most patients. Higher values have been used in children with prosthetic cardiac valves and hereditary clotting disorders. [place] (<3 days) therapeutic ranges have not been established. D-DIMER QUANT 0.92(H) <=0.42 ug/mL FEU [facility] Comment: DVT Screen reference range <0.45 ug/mL FEU D. Dimer Interpretation: The reference range is not clearly established in uncomplicated pregnancies. Values above the upper limit of the reference range are common from the 31st to 40th week of . High negative predictive values for DVT have been reported with the current methodology, as part of a comprehensive medical examination, including risk stratification. PTT 26.9 24.4 - 36.4 Seconds [facility] Comment: PTT Therapeutic Range: Heparin Level PTT (seconds) <0.10 units/mL <53 0.10 - 0.30 units/mL 53 - 67 0.30 - 0.70 units/mL* 67 - 95* 0.70 - 1.00 units/mL 95 - 116 *corresponds to therapeutic range for unfractionated heparin PROTIME 13.6 12.7 - 15.1 Seconds [facility] FIBRINOGEN 539(H) 185 - 404 mg/dL [facility] 03/10/2009 4:24 AM CDT 03/10/2009 4:44 AM CDT us Toshia Roper DO HEMATOLOGY ORDERABLES Fin al Result INTERFACE SYSTEM Refer to clinic/hospital department [facility] CLIA# [id number] [address] [facility] [place] [address] * (ABNORMAL) CBC WITH DIFFERENTIAL (03/10/2009 3:41 AM CDT) HEMATOCRIT 34.6(L) 35.5 - 44.0 % [facility] RDW-STDEV 44.1 37.1 - 48.7 fL [facility] RBC 4.19 3.90 - 4.90 M/uL [facility] MCHC 32.1 31.5 - 35.5 % [facility] MCV 82.6 82.0 - 99.0 fL [facility] PLATELETS 178 140 - 350 K/uL [facility] HEMOGLOBIN 11.1(L) 11.8 - 14.8 g/dL [facility] RDW 14.7(H) 11.5 - 14.5 % [facility] WBC 10.0(H) 4.0 - 9.8 K/uL [facility] MCH 26.5(L) 27.2 - 32.6 pg [facility] MPV 11.8 9.3 - 12.4 fL [facility] BASOPHILS ABSOLUTE 0.00 0.00 - 0.20 K/uL [facility] MONOCYTES 8 3 - 13 % [facility] MONOCYTE ABSOLUTE 0.77 0.10 - 1.30 K/uL [facility] NEUTROPHILS 73(H) 45 - 70 % [facility] NEUTROPHIL ABSOLUTE 7.31(H) 1.90 - 7.00 K/uL [facility] EOSINOPHILS 0 0 - 7 % [facility] EOSINOPHIL ABSOLUTE 0.04 0.00 - 0.70 K/uL [facility] LYMPHOCYTES 19 16 - 45 % [facility] LYMPHOCYTE ABSOLUTE 1.84 0.70 - 4.50 K/uL [facility] BASOPHILS 0 0 - 2 % [facility] 03/10/2009 3:41 AM CDT 03/10/2009 4:28 AM CDT Toshiakarolina MartinJudson DO HEMATOLOGY ORDERABLES Michael jean claude Performing Organization Address City/[facility] de Phone Number INTERFACE SYSTEM Refer to clinic/hospital department [facility] CLIA# [id number] [address] [place] [address] * URIC ACID (03/10/2009 3:41 AM CDT) Pathologist [facility] URIC ACID 3.0 2.3 - 6.6 mg/dL [facility] 03/10/2009 3:41 AM CDT 03/10/2009 4:28 AM CDT Toshiakarolina MartinJudson DO CHEMISTRY ORDERABLES Anette l Result Performing Organization Address [facility] Phone Number INTERFACE SYSTEM Refer to clinic/hospital department [facility] CLIA# [id number] [address] [place] [address] * LACTATE DEHYDROGENASE (03/10/2009 3:41 AM CDT) LD (LACTATE DEHYDROGENASE) 204 135 - 214 U/L [facility] 03/10/2009 3:41 AM CDT 03/10/2009 4:28 AM CDT us Villedaa Rocky Judson DO CHEMISTRY ORDERABLES Anette l Result Performing Organization Address City/[facility] de Phone Number INTERFACE SYSTEM Refer to clinic/hospital department [facility] CLIA# [id number] [address] [place] [address] * AST (03/10/2009 3:41 AM CDT) AST 18 12 - 32 U/L [facility] 03/10/2009 3:41 AM CDT 03/10/2009 4:28 AM CDT us Toshia Valdez Ramseur DO CHEMISTRY ORDERABLES Anette valdez Result INTERFACE SYSTEM Refer to clinic/hospital department [facility] CLIA# [id number] [address] [facility] [place] [address] documented in this encounter Visit Diagnoses Diagnosis Normal delivery documented in this encounter Care Teams Concrete Boom Pump Operator Relationship Specialty Start Date End Date Bethel Zepeda DO [address] [facility] [address] [place] [address] PCP - General Internal Medicine 07/17/22 documented as of this encounter
--- NOTE | 2025-05-25 10:56 | PM.IMHP ---
H&P: HPI History of Present Illness Date/Time: 05/25/25 10:56 Chief Complaint: screening colonoscopy Narrative: This is the patient's first colonoscopy. There are no GI symptoms and there is no family history of colorectal cancer. Review of Systems Review of Systems: All systems reviewed & are unremarkable except as noted in HPI and below [facility] Past Medical History Medical History (Updated 05/25/25 @ 10:56 by Neal Navarro MD) Screening for endocrine disorder Elevated liver enzymes Otitis media Belching Encounter for wellness examination Chest congestion Pelvic pressure in female Anxiety delivery delivered QT prolongation Iron deficiency anemia Morbid obesity Hypertension Diabetes mellitus Hypothyroidism, unspecified (~09/27/21) Family History Family History Father Hypertension Mother , MVA Mitral valve prolapse Social History Social History Smoking status: Never smoker Alcohol intake: never Lack of Transportation: No Lack of Food: Never True Current Housing: I Have Housing Concerned About Future Housing: No Difficulty Paying Gas/Electric Bills: No Difficulty Paying for Meds: No Currently Unemployed: No Education: Master's Degree or Higher Difficulty w/ Childcare or Family Care: No Spiritual care concerns: No Meds Home Medications and Allergies Home Medications ?Medication ?Instructions ?Recorded ?Confirmed ?Type blood sugar diagnostic (OneTouch #100 ea 06/30/22 04/24/25 Rx Verio test strips) lancets 30 gauge (OneTouch Delica #100 ea 06/30/22 04/24/25 Rx Lancets) ondansetron HCl 4 mg tablet 4 mg PO DAILY PRN nausea and 01/07/24 05/25/25 Rx vomiting #20 tabs 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,gluing machine operator,cont #1 ea 03/24/24 04/24/25 Rx (FreeStyle Vega 3 Sasabe) ferrous sulfate 325 mg (65 mg 325 mg PO BID #180 tabs 11/04/24 05/25/25 Rx iron) tablet losartan 100 mg tablet 100 mg PO DAILY #90 tabs 11/10/24 05/25/25 Rx atorvastatin 10 mg tablet 10 mg PO DAILY #90 tabs 01/27/25 05/25/25 Rx cholecalciferol (vitamin D3) 1,250 1,250 mcg PO WEEKLY #8 tabs 07/21/25 10/06/25 Rx mcg (50,000 unit) tablet levothyroxine 75 mcg tablet 75 mcg PO DAILY #90 tabs 03/16/25 05/25/25 Rx (Synthroid) 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 sensor (FreeStyle #2 ea 04/23/25 04/24/25 Rx Vega 3 Plus Sensor device) ascorbic acid (vitamin C) 500 mg 500 mg PO DAILY 05/13/25 05/25/25 History tablet (Vitamin C) metformin 500 mg tablet 500 mg PO DAILY 05/13/25 05/25/25 History venlafaxine 150 mg See Rx Instructions .Route 05/18/25 05/25/25 Rx capsule,extended release 24 hr .COMPLEX #90 caps tirzepatide 12.5 mg/0.5 mL 12.5 mg (0.5 mL) subcut WEEKLY #2 05/19/25 05/25/25 Rx subcutaneous pen injector mL (Mounjaro) Allergies Allergy/AdvReac Type Severity Reaction Status Date / Time cefaclor Allergy Unknown Hives Verified 05/25/25 10:07 cephalexin Allergy Unknown Hives Verified 05/25/25 10:07 Penicillins Allergy Unknown Hives Verified 05/25/25 10:07 Vital Signs Vital Signs - 24 hr 05/25/25 10:26 Temperature 99.5 F Pulse Rate 81 Respiratory Rate 18 Blood Pressure 121/80 Pulse Oximetry 100 Oxygen Delivery Room Air Exam Const: General: cooperative and healthy appearing Resp: Effort & Inspection: normal respiratory effort and able to speak in complete sentences Auscultation: clear to auscultation bilaterally Cardio: Rate: regular rate Rhythm: regular rhythm GI: Inspection: normal to inspection GI Palp: No No hepatosplenomegaly present Auscultation: normal bowel sounds Rectal Exam: deferred Skin: General skin exam: normal color Psych: Appearance: grossly normal Mental Status: mental status grossly normal Assessment and Plan Assessment and plan (1) Encounter for screening colonoscopy: Code(s): Z12.11 - Encounter for screening for malignant neoplasm of colon Status: Acute Assessment and Plan: The patient is deemed a good candidate for the procedure. Consent signed. Will proceed.
--- NOTE | 2025-05-25 11:00 | WPDANESPN ---
Anes - Prog Note Post-Op Date/Time: 05/25/25 11:00 Vital Signs: Last Vital Signs Temp 99.5 F 05/25/25 10:26 Pulse 81 05/25/25 10:26 Resp 18 05/25/25 10:26 BP 121/80 05/25/25 10:26 Pulse Ox 100 05/25/25 10:26 O2 Del Method Room Air 05/25/25 10:26 Pain Score (VAS): no 05/25/25 10:23 POC Capillary Glucose 138 H Patient Feedback: Patient satisfied with anesthetic care.
[2025-05-25] MEDS: SIMETHICONE ORAL SUSPENSION 20 MG/0.3 ML 30 ML BOTTLE 0.6 ML IRRIGATION (11:14)
[2025-05-25 11:25] VITALS: BP 121/72; PULSE 80; RESP 14; O2SAT 100
[2025-05-25 11:34] VITALS: BP 132/89; PULSE 75; RESP 16; O2SAT 100
[2025-05-25 11:45] VITALS: BP 124/78; PULSE 66; RESP 18; O2SAT 100
== END 2025-05-25 11:49 | disposition home or self-care (01) ==
PROVIDERS: PCP Internal Medicine; Referring Provider Clinical Nurse Specialist; Visit Provider Internal Medicine Gastroenterology
PROC: 0DJD8ZZ Inspection of Lower Intestinal Tract, Via Natural or Artificial Opening Endoscopic (ICD-10-PCS; CPT 45378; principal; 2025-05-25 11:00)
DX: Z12.11 Encounter for screening for malignant neoplasm of colon (principal)
CPT/HCPCS: 45378

== ENCOUNTER 2025-07-10 10:29 | Outpatient (CLI) | payer OTHER, SELFPAY ==
--- NOTE | ~2025-07-10 | MM_ITS ---
EXAMINATION: MM screening trace BI w nickie HISTORY: Screening TECHNIQUE: Craniocaudal and mediolateral oblique 3-D tomosynthesis images were obtained and synthetic 2-D images were generated. CAD analysis was submitted and interpreted. COMPARISON: Comparison to multiple prior studies sequentially, with oldest reviewed study dated 03/06/20. BREAST PARENCHYMAL COMPOSITION: Not dense: There are scattered areas of fibroglandular density. FINDINGS: There is no evidence of suspicious mass, calcification, or architectural distortion to suggest malignancy in either breast. There has been no suspicious interval change. IMPRESSION: 1. No mammographic evidence of malignancy. 2. Recommend routine screening mammography in one year. BI-RADS Category 1: Negative Reviewed, dictated and finalized at location O. L DEVELOPER
--- OUTSIDE RECORDS SUMMARY | 2025-07-10 10:33 | XMS_ITS | Clinical Summary ---
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 Gender Identity Not on file Sexual Orientation Not on file Last Filed Vital Signs [...] - 11/08/2018 3:11 PM CDT Performed at: [address] [id number] Embossing Press Operator Apprentice: Shailesh Lemus PhD, Phone: [phone] Juan Estrada NP LAB BLOOD ORDERABLES Final Result Performing Organization Address [facility] de Phone Number [facility] - * (ABNORMAL) Lipid panel (11/07/2018 [...] - 11/08/2018 3:11 PM CDT Performed at: [address] [id number] Embossing Press Operator Apprentice: Shailesh Lemus PhD, Phone: [phone] Juan Estrada NP LAB BLOOD ORDERABLES Final Result Performing Organization Address [facility] de Phone Number [facility] - * (ABNORMAL) Comprehensive metabolic panel [...] - 11/08/2018 3:11 PM CDT Performed at: [address] [id number] Embossing Press Operator Apprentice: Shailesh Lemus PhD, Phone: [phone] us Juan Estrada BRIQUETTE MAKER LAB BLOOD ORDERABLES Final Result Performing Organization Address City/State/[facility] de Phone Number [facility] - 01 from Last 3 Months or Most Recently Relevant to Health Maintenance Insurance [facility] CHOICE PLUS [facility] CHOICE PLUS [facility] CHOICE PLUS Care Teams Hospital Insurance Clerk Relationship Specialty Start Date End Date Bethel Zepeda DO PCP - General 10/29/18 Bethel Zepeda DO Internal Medicine 10/29/18
--- OUTSIDE RECORDS SUMMARY | 2025-07-10 10:33 | XMS_ITS | Clinical Summary ---
Author Organization [facility] Address [address] [place] [address] Care Team Providers Care Ops Analyst Name Role Phone Unavailable Primary Care Provider Unavailabl e Source Comments [facility],non-owned Affiliates and Associated Physician Practices is amultiple site organization consisting of ambulatory clinics and hospital sitesin [place], [place], [place]. This disclosure is being madepursuant to the Care Everywhere program and may not contain all information available regarding this patient. 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 Gender Identity Not on file Sexual Orientation Not on file Plan of Treatment Health Maintenance Due Date Last Done Comments LIPID TESTING 1982 MAMMOGRAM 1982 HIV SCREENING 1997 HEPATITIS C SCREENING 09/25/2000 DTAP/TDAP/TD VACCINES (1 - Tdap) 2001 HEPATITIS B VACCINE (1 of 3 - 19+ 3-dose series) 2001 PAP SMEAR 2003 HPV VACCINE (1 - 3-dose SCDM series) 2009 Cervical Cancer Screening 2012 PAP with HPV 2012 DEPRESSION SCREENING 08/20/2024 COVID-19 VACCINE ( - 2024-2 6 season) 2025 INFLUENZA VACCINE (#1) 2025 ZOSTER VACCINE (1 of 2) 2032 HIB VACCINE Aged Out No longer eligi ble based on patient's age to complete this topic MENINGOCOCCAL (Group B) VACC INE SHARED DECISION-MAKING Aged Out No longer eligibl e based on patient's age to complete this topic MENINGOCOCCAL GROUPS A/C/Y/W VACCINE Aged Out No longer eligible b ased on patient's age to complete this topic PNEUMOCOCCAL VACCINE Aged Out No long er eligible based on patient's age to complete this topic
--- OUTSIDE RECORDS SUMMARY | 2025-07-10 10:33 | XMS_ITS | Encounter Summary ---
Author Organization [facility] Address [address] [place] [address] Care Team Providers Care Registration Manager Name Role Phone Bethel eZpeda DO Primary Care Provider Encounter Details Date Type Department Care Team (Late st Contact Info) Description 02/03/2009 Outpatient Historical HIS OB PREADMIT Toshia Roper DO [address] [place] [address] Bethel Wharton DO NO ADDRESS ON FILE Helga Marcus MD [address] [place] [address] Normal Delivery Social History Tobacco Use Types Packs/Day Years Used Date Smoking Tobacco: Never Assessed Comments Unknown Sex and Gender Information Value Date Recorded Sex Assigned at Not on file 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 Gender Identity Not on file Sexual Orientation [...] (03/14/2009 2:40 PM CDT) PRELIMINARY REPORT Pending [facility] FINAL REPORT No growth 24 hours [facility] 03/14/2009 2:40 PM CDT 03/14/2009 3:33 PM CDT us Olga Klein MICROBIOLOGY - GENERAL ORDERABL ES Final Result [facility] CLIA# [id number] [address] [place] [address] * URINALYSIS (03/14/2009 2:40 PM CDT) COLOR UA Pale Yellow [facility] NITRITE UA Negative Negative [facility] UROBILINOGEN UA <1 <=1 mg/dL [facility] PH UA 5.0 5.0 - 8.0 [facility] KETONES UA Negative Negative [facility] CLARITY UA Clear Clear [facility] PROTEIN UA Negative Negative [facility] BILIRUBIN UA Negative Negative [facility] LEUKOCYTE ESTERASE UA Negative Negative [facility] SPECIFIC GRAVITY UA 1.007 1.001 - 1.035 [facility] BLOOD UA Negative Negative [facility] GLUCOSE UA Negative Negative [facility] 03/14/2009 2:40 PM CDT 03/14/2009 3:07 PM CDT Olga Klein URINE ORDERABLES Final Result [facility] CLIA# [id number] [address] [place] [address] * (ABNORMAL) CBC WITH DIFFERENTIAL (03/11/2009 5:35 AM CDT) RBC 3.39(L) 3.90 - 4.90 M/uL [facility] MCHC 32.0 31.5 - 35.5 % [facility] MCV 82.9 82.0 - 99.0 fL [facility] PLATELETS 138(L) 140 - 350 K/uL [facility] HEMOGLOBIN 9.0(L) 11.8 - 14.8 g/dL [facility] RDW 15.0(H) 11.5 - 14.5 % [facility] WBC 10.3(H) 4.0 - 9.8 K/uL [facility] MCH 26.5(L) 27.2 - 32.6 pg [facility] MPV 11.7 9.3 - 12.4 fL [facility] HEMATOCRIT 28.1(L) 35.5 - 44.0 % [facility] RDW-STDEV 45.5 37.1 - 48.7 fL [facility] BASOPHILS 0 0 - 2 % [facility] BASOPHILS ABSOLUTE 0.01 0.00 - 0.20 K/uL [facility] MONOCYTES 8 3 - 13 % [facility] MONOCYTE ABSOLUTE 0.85 0.10 - 1.30 K/uL [facility] NEUTROPHILS 76(H) 45 - 70 % [facility] NEUTROPHIL ABSOLUTE 7.84(H) 1.90 - 7.00 K/uL [facility] EOSINOPHILS 0 0 - 7 % [facility] EOSINOPHIL ABSOLUTE 0.01 0.00 - 0.70 K/uL [facility] LYMPHOCYTES 16 16 - 45 % [facility] LYMPHOCYTE ABSOLUTE 1.60 0.70 - 4.50 K/uL [facility] 03/11/2009 5:35 AM CDT 03/11/2009 6:22 AM CDT Toshia Roper DO HEMATOLOGY ORDERABLES Michael jean claude Performing Organization Address [facility] de Phone Number INTERFACE SYSTEM Refer to clinic/hospital department [facility] CLIA# [id number] [address] [place] [address] * (ABNORMAL) HEMOGLOBIN AND HEMATOCRIT (03/10/2009 6:42 PM CDT) HEMOGLOBIN 9.4(L) 11.8 - 14.8 g/dL [facility] HEMATOCRIT 29.2(L) 35.5 - 44.0 % [facility] 03/10/2009 6:42 PM CDT 03/10/2009 7:06 PM CDT Toshia Martinwright DO HEMATOLOGY ORDERABLES Fin al Result INTERFACE SYSTEM Refer to clinic/hospital department [facility] CLIA# [id number] [address] [place] [address] * PATHOLOGY (03/10/2009 5:00 PM CDT) FINAL REPORT [facility] [address] [place], [place] [address] Patient: MINAL ESCOBAR : 1980 Procedure Date: 03/10/2009 Accession Date: 03/11/2009 Case No: 1- [id number] Ordering Dr: HELGA MARCUS Case type SW is performed by [place], [place]; all other case types are performed by [facility], [place], [place] SURGICAL PATHOLOGY & NON-GYNECOLOGIC CYTOPATHOLOGY REPORT [...] involves less than 1% of the parenchyma. Medical Imaging Tech sections are submitted as follows: A1- umbilical cord and membranes; A2-area of red-bello induration; A3-disrupted parenchyma; A4 and A5-placental parenchyma. [facility] 03.12.2009 01:08 pm Microscopic: The slides are labeled [id number], Minal Escobar. Sections of the membranes show [...] markedly hypervascular villi scattered throughout the placenta. [facility]/YOEL 03.15.2009 09:45 pm Staging Form: No. ELECTRONIC SIGNATURE FOR PHOEBE ENRIQUEZ MD- 03/16/09 08:32 am [facility] 03/10/2009 5:00 PM CDT us Helga Marcus MD PATHOLOGY/CYTOLOGY ORDERABL ES Final Result [facility] CLIA# [id number] [address] [place] [address] * (ABNORMAL) URINALYSIS (03/10/2009 6:45 AM CDT) SPECIFIC GRAVITY UA 1.016 1.001 - 1.035 [facility] BLOOD UA Negative Negative [facility] GLUCOSE UA 1+(A) Negative [facility] TRANSITIONAL EPI 0-2 /HPF [facility] COLOR UA Yellow [facility] NITRITE UA Negative Negative [facility] UROBILINOGEN UA <1 <=1 mg/dL [facility] BACTERIA UA 1+(A) None Seen /HPF [facility] PH UA 6.0 5.0 - 8.0 [facility] KETONES UA Trace(A) Negative [facility] WBC UA 2 0 - 5 /HPF [facility] CLARITY UA Clear Clear [facility] PROTEIN UA Trace(A) Negative [facility] EPITHELIAL CELLS, URINE 0-2 /HPF [facility] BILIRUBIN UA Negative Negative [facility] LEUKOCYTE ESTERASE UA Negative Negative [facility] RBC UA 1 0 - 4 /HPF [facility] 03/10/2009 6:45 AM CDT 03/10/2009 6:54 AM CDT Narrative INTERFACE SYSTEM - 03/10/2009 7:06 AM CDT CATH UA Toshia Roper DO URINE ORDERABLES Final Re sult Performing Organization Address [facility] de Phone Number INTERFACE SYSTEM Refer to clinic/hospital department [facility] CLIA# [id number] [address] [place] [address] * TYPE AND SCREEN (03/10/2009 4:27 AM CDT) HISTORY CHECK No Historical ABO/Rh [facility] SPECIMEN LIFE 3 days from drawdate [facility] ABO/RH TYPE O Positive [facility] ANTIBODY SCREEN Negative [facility] 03/10/2009 4:27 AM CDT us Toshia Roper DO BLOOD BANK ORDERABLES Michael jean claude Performing Organization Address [facility] Co de Phone Number INTERFACE SYSTEM Refer to clinic/hospital department [facility] CLIA# [id number] [address] [place] [address] * (ABNORMAL) DIC PROFILE (03/10/2009 4:24 AM CDT) INR 1.0 0.9 - 1.1 [facility] Comment: INR Therapeutic Range: Adult: 2.0 - 3.0 for pulmonary embolism or prophylaxis against venous thrombosis or systemic embolization. 2.0 - 3.0 for patients with tissue heart valves. 2.5 - 3.5 for patients with mechanical heart valves or post VT. Pediatric (12 years and under): 1.5 - 3.0 Although the target range in children is not well established, INR values of 1.5 - 3.0 are recommended for most patients. Higher values have been used in children with prosthetic cardiac valves and hereditary clotting disorders. (<3 days) therapeutic ranges have not been established. D-DIMER QUANT 0.92(H) <=0.42 ug/mL FEU [facility] Comment: DVT Screen reference range <0.45 [...] stratification. PTT 26.9 24.4 - 36.4 Seconds [facility] Comment: PTT Therapeutic Range: Heparin Level PTT (seconds) <0.10 units/mL <53 0.10 - 0.30 units/mL 53 - 67 0.30 - 0.70 units/mL* 67 - 95* 0.70 - 1.00 units/mL 95 - 116 *corresponds to therapeutic range for unfractionated heparin PROTIME 13.6 12.7 - 15.1 Seconds [facility] FIBRINOGEN 539(H) 185 - 404 mg/dL [facility] 03/10/2009 4:24 AM CDT 03/10/2009 4:44 AM CDT us Toshia Roper DO HEMATOLOGY ORDERABLES Fin al Result INTERFACE SYSTEM Refer to clinic/hospital department [facility] CLIA# [id number] [address] [place] [address] * (ABNORMAL) CBC WITH DIFFERENTIAL (03/10/2009 3:41 AM CDT) HEMATOCRIT 34.6(L) 35.5 - 44.0 % [facility] RDW-STDEV 44.1 37.1 - 48.7 fL [facility] RBC 4.19 3.90 - 4.90 M/uL [facility] MCHC 32.1 31.5 - 35.5 % [facility] MCV 82.6 82.0 - 99.0 fL [facility] PLATELETS 178 140 - 350 K/uL [facility] HEMOGLOBIN 11.1(L) 11.8 - 14.8 g/dL [facility] RDW 14.7(H) 11.5 - 14.5 % [facility] WBC 10.0(H) 4.0 - 9.8 K/uL [facility] MCH 26.5(L) 27.2 - 32.6 pg [facility] MPV 11.8 9.3 - 12.4 fL [facility] BASOPHILS ABSOLUTE 0.00 0.00 - 0.20 K/uL [facility] MONOCYTES 8 3 - 13 % [facility] MONOCYTE ABSOLUTE 0.77 0.10 - 1.30 K/uL [facility] NEUTROPHILS 73(H) 45 - 70 % [facility] NEUTROPHIL ABSOLUTE 7.31(H) 1.90 - 7.00 K/uL [facility] EOSINOPHILS 0 0 - 7 % [facility] EOSINOPHIL ABSOLUTE 0.04 0.00 - 0.70 K/uL [facility] LYMPHOCYTES 19 16 - 45 % [facility] LYMPHOCYTE ABSOLUTE 1.84 0.70 - 4.50 K/uL [facility] BASOPHILS 0 0 - 2 % [facility] 03/10/2009 3:41 AM CDT 03/10/2009 4:28 AM CDT us Pope Rocky MartinJudson DO HEMATOLOGY ORDERABLES Michael jean claude Performing Organization Address City/[facility] Phone Number INTERFACE SYSTEM Refer to clinic/hospital department [facility] CLIA# [id number] [address] [place] [address] * URIC ACID (03/10/2009 3:41 AM CDT) Pathologist [facility] URIC ACID 3.0 2.3 - 6.6 mg/dL [facility] 03/10/2009 3:41 AM CDT 03/10/2009 4:28 AM CDT us Villedakarolina Valdez Judson DO CHEMISTRY ORDERABLES Anette l Result Performing Organization Address [facility] Phone Number INTERFACE SYSTEM Refer to clinic/hospital department [facility] CLIA# [id number] [address] [place] [address] * LACTATE DEHYDROGENASE (03/10/2009 3:41 AM CDT) LD (LACTATE DEHYDROGENASE) 204 135 - 214 U/L [facility] 03/10/2009 3:41 AM CDT 03/10/2009 4:28 AM CDT us Pope Rocky Blackville DO CHEMISTRY ORDERABLES Anette l Result Performing Organization Address City/[facility] de Phone Number INTERFACE SYSTEM Refer to clinic/hospital department [facility] CLIA# [id number] [address] [place] [address] * AST (03/10/2009 3:41 AM CDT) AST 18 12 - 32 U/L [facility] 03/10/2009 3:41 AM CDT 03/10/2009 4:28 AM CDT us Toshia Valdez Judson DO CHEMISTRY ORDERABLES Anette valdez Result INTERFACE SYSTEM Refer to clinic/hospital department [facility] CLIA# [id number] [address] [place] [address] documented in this encounter Visit Diagnoses Diagnosis Normal delivery documented in this encounter Care Teams Registration Manager Relationship Specialty Start Date End Date Bethel Zepeda DO [address] [place] [address] PCP - General Internal Medicine 07/17/22 documented as of this encounter
--- OUTSIDE RECORDS SUMMARY | 2025-07-10 10:33 | XMS_ITS | Clinical Summary ---
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 Gender Identity Not on file Sexual Orientation [...] 162.6 cm (5' 4) 07/17/2022 10:47 AM SURFACE MINER Body Mass Index 42.05 07/17/2022 10:47 AM SURFACE MINER Plan of Treatment Health Maintenance Due Date [...] 2025 08/11/2013 Medical Devices Implanted Type Area Manager Of Sales Device Identifier Shelf Expiration Date Model / Serial / Lot Barrier Seprafilm 5x6in 4301-02 - [id number] Implanted:Qty : 1 on 09/15/2013 by Toshia Roper DO at [facility] [employer]hesion Barrier Bilateral: Abdomen GEN[employer]- [employer]OSURG 04/15/2015 5490-7293 -02 / [id number] Barrier Seprafilm 5x6in 4301-02 - [id number] Implanted:Qty : 1 on 09/15/2013 by Toshia Roper DO at [facility] [employer] Barrier N/A: Abdomen [employer]YME- BIOSURG 04/15/2015 9941-3675 -02 / [id number] Insurance OPTIONS PPO [phone] OPTIONS PPO [phone] Advance Directives For more information, please contact: [phone] * Full Code (Latest Code Status on File) Date Activated Date Inactivated Comments 09/15/2013 3:12 PM 09/20/2013 1:15 PM * Full Code Date Activated Date Inactivated Comments 09/15/2013 7:57 AM 09/15/2013 3:12 PM Care Teams Malt Liquors Sales Supervisor Relationship Specialty Start Date End Date Bethel Zepeda DO [address] [address] PCP - General Internal Medicine 07/17/22
== END 2025-07-10 10:30 | disposition home or self-care (01) ==
PROVIDERS: PCP Clinical Nurse Specialist; Visit Provider Obstetrics & Gynecology Gynecology
DX: Z12.31 Encounter for screening mammogram for malignant neoplasm of breast (principal)
CPT/HCPCS: 77063; 77067